=== PATIENT | female | born 1960 | race Caucasian/White ===

== ENCOUNTER 2019-12-25 12:35 | Emergency (ER) | payer OTHER, SELFPAY ==
[2019-12-25 12:47] VITALS: BP 137/66; PULSE 68; RESP 12; TEMP 36.6; O2SAT 96; BMI 31.5
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
--- NOTE | 2019-12-25 12:56 | PC.NURSE ---
arrives in walker wrap and sling. Has been taking ibuprofen and tylenol around the clock for pain. Noticable swelling to right wrist and hand. Patient has bruise to right elbow. Right shoulder sore but good ROM. CMS intact.
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
== END 2019-12-25 14:30 | disposition home or self-care (01) ==
PROVIDERS: Emergency Provider Nurse Practitioner Family
DX: S52.501A Unspecified fracture of the lower end of right radius, initial encounter for closed fracture (principal); S52.124A Nondisplaced fracture of head of right radius, initial encounter for closed fracture; V29.9XXA Motorcycle rider (driver) (passenger) injured in unspecified traffic accident, initial encounter
CPT/HCPCS: 29105; 73080; 73090; 73110; 99283

== ENCOUNTER → 2019-12-30 14:05 | Outpatient (CLI) | payer SELFPAY ==
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
== END ==
PROVIDERS: Referring Provider Orthopaedic Surgery Orthopaedic Surgery of the Spine; Visit Provider Orthopaedic Surgery Orthopaedic Surgery of the Spine
DX: M25.531 Pain in right wrist (principal); S52.121A Displaced fracture of head of right radius, initial encounter for closed fracture; S52.571A Other intraarticular fracture of lower end of right radius, initial encounter for closed fracture; X58.XXXA Exposure to other specified factors, initial encounter
CPT/HCPCS: 73200